=== PATIENT | female | born 1960 | race Hispanic/Latino ===

== ENCOUNTER → 2021-08-21 | Outpatient (CLI) | payer OTHER | LOC: MAMMO 07:54 | PROVIDERS: ATTEND Internal Medicine | DX: Z12.31 Encounter for screening mammogram for malignant neoplasm of breast (principal); M85.88 Other specified disorders of bone density and structure, other site; E11.9 Type 2 diabetes mellitus without complications | CPT/HCPCS: 77067; 77080 ==